=== PATIENT | female | born 1985 | race Caucasian/White ===

== ENCOUNTER 2016-12-27 14:25 | Emergency (ER) | payer OTHER ==
--- NOTE | ~2016-12-27 | EKG ---
PATIENT: LAY RAO UNIT #: [id number] Ventricular Rate: 77 BPM Atrial Rate: 77 BPM P-R Interval: 134 ms QRS Duration: 96 ms Q-T Interval: 374 ms QTC Calculation(Bezet): 423 ms P Gilbert: 46 degrees Calculated R Gilbert: 14 degrees Calculated T Gilbert: 29 degrees Diagnosis Line: Normal sinus rhythm Diagnosis Line: Normal ECG Diagnosis Line: No previous ECGs available Diagnosis Line: Confirmed by EDDIE ISRAEL MD ([id number]) on 12/29/2016 Diagnosis Line: 10:21:32 AM INTERPRETING MD: JHONATAN SANCHEZ
[~2016-12-27 14:25] MED LIST: AMOXICILLIN500 M1 PO
[2016-12-27] MEDS ORDERED: IBUPROFEN (14:27)
[2016-12-27 15:34] LABS: URINE SOURCE CLEAN CATCH
[2016-12-27 15:35] LABS: BASOPHIL# 0.1 X10e3 (0-0.3); BASOPHIL% 0.5 % (0-2.5); EOSINOPHIL# 0.2 X10e3 (0-0.7); EOSINOPHIL% 2.3 % (0.0-7.0); HEMATOCRIT 40.9 % (35.0-45.0); LYMPHOCYTE# 2.6 X10e3 (1.0-3.5); LYMPHOCYTE% 25.9 % (17.0-45.0); MEAN CELL VOLUME 89.5 FL (83-96); MEAN CORPUSCULAR HEMOGLOBIN 30.6 PG (28-34); MEAN CORPUSCULAR HGB CONC 34.2 g/dL (30-36); MEAN PLATELET VOLUME 7.5 FL (6.5-11.5); MONOCYTE# 0.5 X10e3 (0-1.0); MONOCYTE% 5.3 % (3.0-12.0); NEUTROPHIL# 6.7 X10e3 (1.5-7.1); PLATELET COUNT 297 X10e3 (140-420); RED BLOOD COUNT 4.57 X10e (3.90-5.30); WHITE BLOOD COUNT 10.2 X10e3 (4.0-10.5)
[2016-12-27 15:36] LABS: URINE APPEARANCE CLEAR; URINE BILIRUBIN NEG (NEG); URINE BLOOD NEG (NEG); URINE COLOR YELLOW; URINE GLUCOSE NEG (NORM); URINE KETONE NEG (NEG); URINE LEUKOCYTE ESTERASE TRACE (NEG); URINE NITRATE NEG (NEG); URINE PROTEIN NEG (NEG); URINE SPECIFIC GRAVITY <=1.005 (1.003-1.035); URINE UROBILINOGEN 0.2 MG/DL (NORM)
[2016-12-27 15:37] LABS: DIFF IND NO
[2016-12-27 15:38] LABS: MICRO INDICATED? YES
[2016-12-27 15:42] LABS: URINE BACTERIA NEG (NEG); URINE RBC 0-2 /[HPF] (0-2); URINE SQUAMOUS EPITHELIAL CELL FEW /[HPF]; URINE WBC 0-2 /[HPF] (0-5)
[2016-12-27 15:52] LABS: CALCIUM SERUM 8.5 mg/dL (8.4-10.2); CREATININE SERUM 0.7 mg/dL (0.6-1.4); GLOM FILT RATE Estimated 115.5 mL/min (>60); POTASSIUM 3.7 mmol/L (3.5-5.1)
== END 2016-12-27 16:14 | disposition home or self-care (01) ==
LOC: SED 14:25
PROVIDERS: Emergency Medicine
DX: R42 Dizziness and giddiness (principal); D64.9 Anemia, unspecified
CPT/HCPCS: 36415; 80048; 81003; 84703; 85025; 93005; 99283